=== PATIENT | male | born 1960 | race Caucasian/White ===

== ENCOUNTER 2017-07-19 14:42 | Emergency (ER) | payer OTHER ==
[2017-07-19 16:12] LABS: A TYPE INFLUENZA AG NEGATIVE (NEGATIVE); B INFLUENZA AG NEGATIVE (NEGATIVE)
--- NOTE | 2017-07-19 16:16 | ER Document Report ---
ED Respiratory Problem - General Chief Complaint: Cough Stated Complaint: COUGH Time Seen by Provider: 07/19/17 15:38 Mode of Arrival: Ambulatory Information source: Patient Notes: 57-year-old male presents to ED for cough congestion and flulike symptoms for the last 5 days. States he went to the [place] [facility] today and they sent him to the emergency room to get flu test and chest x-ray. He states he has had a productive cough body aches fatigue no chest pain speaks with full sentences walks with the even steady gait no acute distress noted. TRAVEL OUTSIDE OF THE [place] IN LAST 30 DAYS: No - HPI Patient complains to provider of: Cough, Short of breath Onset: Other - 5 days Duration: Continuous Initiating Event: URI Quality of pain: Achy - Body aches Severity: Moderate Pain Level: 3 Context: Other - Cough congestion body aches Short of Breath: Mild Cough: Productive - Plan Sputum color: White Sputum consistency: Thick Associated symptoms: Cough, PND, Runny nose, Sinus pain/pressure, Short of breath, Other - Body aches Similar symptoms previously: Yes Recently seen / treated by doctor: Yes - Related Data Allergies/Adverse Reactions: No Known Allergies Allergy (Unverified 07/19/17 14:45) Past Medical History - General Information source: Patient - Social History Smoking Status: Never Smoker Cigarette use (# per day): No Chew tobacco use (# tins/day): No Smoking Education Provided: No Frequency of alcohol use: None Drug Abuse: None Occupation: [employer] Lives with: Spouse/Significant other Family History: CAD, COPD, CVA, Hyperlipidemia, Hypertension, Malignancy. denies: Arthritis, Thyroid Disfunction Patient has suicidal ideation: No Patient has homicidal ideation: No - Past Medical History Cardiac Medical History: Reports: None Pulmonary Medical History: Reports: None EENT Medical History: Reports: Ears Neurological Medical History: Reports: None Endocrine Medical History: Reports: None Renal/ Medical History: Reports: None Malignancy Medical History: Reports None GI Medical History: Reports: Hx Colonoscopy Musculoskeltal Medical History: Reports Hx Arthritis, Reports Hx Musculoskeletal Trauma Skin Medical History: Reports None Psychiatric Medical History: Reports: Hx Post Traumatic Stress Disorder Traumatic Medical History: Reports: None Infectious Medical History: Reports: None Past Surgical History: Reports: Hx Orthopedic Surgery - Achilles tendon repair, Hx Vascular Surgery - Varicose vein - Immunizations Immunizations up to date: Yes Review of Systems - Review of Systems Constitutional: Recent illness EENT: Nose congestion, Nose discharge, Sinus pressure, Sinus discharge, Throat pain Cardiovascular: No symptoms reported Respiratory: Cough, Sputum Gastrointestinal: No symptoms reported Genitourinary: No symptoms reported Male Genitourinary: No symptoms reported Musculoskeletal: No symptoms reported Skin: No symptoms reported Hematologic/Lymphatic: No symptoms reported Neurological/Psychological: No symptoms reported -: Yes All other systems reviewed and negative Physical Exam - Vital signs Vitals: Temp Pulse Resp BP Pulse Ox 97.5 F 62 16 120/77 96 07/19/17 14:52 07/19/17 14:52 07/19/17 14:52 07/19/17 14:52 07/19/17 14:52 Interpretation: Normal - General General appearance: Appears well, Alert - HEENT Head: Normocephalic, Atraumatic Eyes: Normal Pupils: PERRL Ears: Normal External canal: Normal Tympanic membrane: Normal Sinus: Normal Nasal: Purulent discharge, Swelling Mouth/Lips: Normal Mucous membranes: Normal Pharynx: Post nasal drainage. No: Erythema, Exudate, Tonsillar hypertrophy Neck: Normal - Respiratory Respiratory status: No respiratory distress Chest status: Nontender Breath sounds: Productive cough. No: Decreased air movement, Nonproductive cough, Rales, Rhonchi, Stridor, Wheezing Chest palpation: Normal - Cardiovascular Rhythm: Regular Heart sounds: Normal auscultation Murmur: No - Abdominal Inspection: Normal Distension: No distension Bowel sounds: Normal Tenderness: Nontender Organomegaly: No organomegaly - Back Back: Normal, Nontender - Extremities General upper extremity: Normal inspection, Nontender, Normal color, Normal ROM , Normal temperature General lower extremity: Normal inspection, Nontender, Normal color, Normal ROM , Normal temperature, Normal weight bearing. No: Aiden's sign - Neurological Neuro grossly intact: Yes Cognition: Normal Orientation: AAOx4 [place]undo Coma Scale Eye Opening: Spontaneous [place]undo Coma Scale Verbal: Oriented [place] Coma Scale Motor: Obeys Commands Raymundo Coma Scale Total: 15 Speech: Normal Motor strength normal: LUE, RUE, LLE, RLE Sensory: Normal - Psychological Associated symptoms: Normal affect, Normal mood - Skin Skin Temperature: Warm Skin Moisture: Dry Skin Color: Normal Course - Re-evaluation Re-evalutation: 07/19/17 17:10 Discussed results of flu test and chest x-ray with patient and written reports given to patient to take back to the [place] [facility]. Patient informed he has atelectasis which was discussed to him so he would understand what it was I also gave him written instructions concerning atelectasis. He was also given a prescription for azithromycin if he is not feeling better in the next 2-3 days to start or if he develops a fever again. There is no definite pneumonia at this time. Patient to follow-up with his primary doctor via telephone today or tomorrow to schedule a follow-up visit. - Vital Signs Vital signs: Temp Pulse Resp BP Pulse Ox 98.3 F 62 18 113/74 96 07/19/17 17:31 07/19/17 17:31 07/19/17 17:31 07/19/17 17:31 07/19/17 17:31 - Diagnostic Test Radiology reviewed: Image reviewed, Reports reviewed Discharge - Discharge Clinical Impression: Atelectasis of right middle ear URI (upper respiratory infection) Qualifiers: URI type: unspecified URI Qualified Code(s): J06.9 - Acute upper respiratory infection, unspecified Condition: Stable Disposition: HOME, SELF-CARE Additional Instructions: UPPER RESPIRATORY ILLNESS: You have a viral infection of the respiratory passages -- a "cold." This common infection causes nasal congestion, drainage, and often sore throat and cough. It is highly contagious. The disease usually lasts about 10 to 14 days. There is no "cure" for the viral infection -- it must run its course. If there is a complication, such as bacterial infection in the nose, sinuses, middle ear, or bronchial tubes, antibiotics may be required. The antibiotics won't affect the virus. Drink plenty of fluids. A humidifier may help. An expectorant medication or decongestant may make you more comfortable. Use acetaminophen or ibuprofen for fever or aches. See the doctor if fever persists over two days, if there is any significant worsening of your symptoms, or if you simply fail to improve as expected. Atelectasis Your symptoms are due to partial collapse of the lung, called atelectasis. When lung air sacs aren't filled properly with air, they can collapse. This is common after surgery. It may occur whenever breathing is weak or painful. To correct the collapse, we need to get your lung air sacs to open. Do breathing exercises for the next two days. Every 15 minutes while awake, rapidly suck in a full breath and hold it a few seconds. Sometimes we'll prescribe a machine to measure your progress. Call or return if there's increasing shortness of breath, fever or chills, increasing chest pain, productive cough, or coughing of blood. You will be given a prescription of azithromycin if you develop a fever the respirations and breathing become worse or you increase the amount of sputum your cough and up. Then start your azithromycin. Please call your primary doctor today to schedule a follow-up visit. Your flu test were negative. Azithromycin Azithromycin (Zithromax) is a broad spectrum antibiotic in the same class as erythromycin. It can treat a variety of bacterial infections, but is most frequently used for respiratory infections. Azithromycin is extremely long-lasting. It accumulates in body tissues and continues to kill bacteria for many days. In order to improve absorption, Azithromycin should be taken at least one hour before or two hours after a meal. It does not have the same strong tendency to upset the stomach as erythromycin and is usually very well tolerated. Patients who have had a rash or other true allergic reactions to erythromycin should not take this medication. Call if you develop gastrointestinal distress, severe diarrhea, rash, hives, itching, or shortness of breath. DECONGESTANT MEDICATION: A decongestant medicine has been prescribed. Often this medicine is combined in the same tablet with an antihistamine or expectorant. This type of medicine is helpful in treating a bad cold or sinus condition, as well as in treatment of the nasal congestion of hay fever. It is not of much benefit for lung infections. Decongestant medicines are related to stimulants. They can cause an increase in blood pressure and heart rate. Persons with heart disease and high blood pressure should not take decongestants without discussing this with the physician. If you develop palpitations, chest pain, headache, or tremors, stop the medicine and consult your physician. COUGH-SUPPRESSANT & EXPECTORANT MEDICATION: You are to use a cough medication as needed for relief of symptoms. This medicine is a combination of an expectorant (to make the mucous thinner and more easily "coughed up") and a cough suppressant (to reduce the frequency of coughing). The cough-suppressant medicine is related to narcotics. You may experience mild nausea and sleepiness. Some patients who are very sensitive to narcotics may have stomach pain from this medicine. Taking the medicine with food reduces these side effects. Do not drive or work with machinery until you know how this medicine affects you. The expectorant should have no side effects. Iodine-containing expectorants (such as organidin) should not be taken by persons with active thyroid disease unless approved by your doctor. Call the doctor if you develop shortness of breath, hives, rash, itching, lightheadedness, or severe nausea and vomiting. USE OF ACETAMINOPHEN (Tylenol): Acetaminophen may be taken for pain relief or fever control. It's much safer than aspirin, offering a wider range of "safe" dosages. It is safe during . Some brand names are Tylenol, Panadol, Datril, Anacin 3, Tempra, and Liquiprin. Acetaminophen can be repeated every four hours. The following are maximum recommended dosages: >89 pounds or adults 650 mg to 900 mg Acetaminophen can be repeated every four hours. Maximum dose not to exceed 4000 mg a day. SMOKING: If you smoke, you should stop smoking. The tar and chemicals in cigarette smoke are harmful. Smoking has been shown to cause: emphysema chronic bronchitis lung cancer mouth and throat cancer stomach and pancreas cancer premature aging defects In addition, smoking increases ear and lung infections in children of smokers. FOLLOW-UP CARE: If you have been referred to a physician for follow-up care, call the physician s office for an appointment as you were instructed or within the next two days. If you experience worsening or a significant change in your symptoms, notify the physician immediately or return to the Emergency Department at any time for re-evaluation. Prescriptions: Azithromycin [Zithromax 250 mg Tablet] 250 mg PO ASDIR PRN #6 tablet PRN Reason: Forms: Return to Work Referrals: TIEN COLEMAN MD [Primary Care Provider] - Follow up as needed
--- NOTE | 2017-07-19 16:28 | RADIOLOGY REPORT (SQ) ---
EXAM DESCRIPTION: CHEST PA/LAT COMPLETED DATE/TIME: 07/19/2017 4:16 pm REASON FOR STUDY: cough congestion COMPARISON: None. EXAM PARAMETERS: NUMBER OF VIEWS: two views TECHNIQUE: Digital Frontal and Lateral radiographic views of the chest acquired. RADIATION DOSE: NA LIMITATIONS: none FINDINGS: LUNGS AND PLEURA: Probable calcified granuloma right upper lobe superimposed on the anteri or right 2nd rib. Minimal right middle lobe bandlike airspace disease likely atelectasis. No fluffy alveolar infiltrates worrisome for edema or pneumonia. No pleural effusion. No pneumothor ax. MEDIASTINUM AND HILAR STRUCTURES: No masses or contour abnormalities. HEART AND VASCULAR STRUCTURES: Heart normal size. No evidence for failure. BONES: No acute findings. HARDWARE: None in the chest. OTHER: No other significant finding. IMPRESSION: Minimal right middle lobe bandlike atelectasis or scarring TECHNICAL DOCUMENTATION: JOB ID: [id number] [employer]- All Rights Reserved
[2017-07-19 17:34] VITALS: BP 113/74
== END 2017-07-19 17:32 | disposition home or self-care (01) ==
LOC: ER 14:42
DX: J98.11 Atelectasis (principal); J06.9 Acute upper respiratory infection, unspecified; M79.1 Myalgia
CPT/HCPCS: 71046; 87804; 99283

== ENCOUNTER 2018-09-13 16:32 | Emergency (ER) | payer OTHER ==
--- NOTE | 2018-09-13 19:42 | ER Document Report ---
ED Medical Screen (RME) - General Chief Complaint: Abdominal Pain Stated Complaint: STOMACH PAIN Time Seen by Provider: 09/13/18 19:39 Primary Care Provider: TIEN COLEMAN MD [Primary Care Provider] - Follow up as needed Mode of Arrival: Ambulatory Information source: Patient - pt with R-sided abdominal pain intermittently for the past couple of weeks. Worse today TRAVEL OUTSIDE OF THE [place] IN LAST 30 DAYS: No - Related Data Allergies/Adverse Reactions: No Known Allergies Allergy (Unverified 07/19/17 14:45) Past Medical History Renal/ Medical History: Denies: Hx Peritoneal Dialysis GI Medical History: Reports: Hx Colonoscopy Musculoskeltal Medical History: Reports Hx Arthritis, Reports Hx Musculoskeletal Trauma Psychiatric Medical History: Reports: Hx Post Traumatic Stress Disorder Past Surgical History: Reports: Hx Orthopedic Surgery - Achilles tendon repair, Hx Vascular Surgery - Varicose vein - Immunizations Immunizations up to date: Yes Physical Exam - Vital signs Vitals: Temp Pulse Resp BP Pulse Ox 97.9 F 70 16 135/83 H 94 09/13/18 16:47 09/13/18 16:47 09/13/18 16:47 09/13/18 16:47 09/13/18 16:47 Course - Vital Signs Vital signs: Temp Pulse Resp BP Pulse Ox 97.9 F 70 16 135/83 H 94 09/13/18 16:47 09/13/18 16:47 09/13/18 16:47 09/13/18 16:47 09/13/18 16:47 Doctor's Discharge - Discharge Referrals: TIEN COLEMAN MD [Primary Care Provider] - Follow up as needed
[2018-09-13 20:44] LABS: ABSOLUTE BASOPHILS # (AUTO) 0.1 10^3/uL (0.0-0.2); ABSOLUTE EOSINOPHILS # (AUTO) 0.3 10^3/uL (0.0-0.6); ABSOLUTE LYMPHOCYTES (AUTO) 3.3 10^3/uL (0.5-4.7); ABSOLUTE NEUT (AUTO) 5.3 10^3/uL (1.7-8.2); BASOPHILS % (AUTO) 0.9 % (0-2); EOSINOPHILS % (AUTO) 2.7 % (0-6); HEMATOCRIT 52.4 % (37.9-51.0); HEMOGLOBIN 18.7 g/dL (13.5-17.0); LYMPHOCYTES % (AUTO) 32.9 % (13-45); MEAN CORPUSCULAR HEMOGLOBIN 33.1 pg (27.0-33.4); MEAN CORPUSCULAR HGB CONC 35.7 g/dL (32.0-36.0); MEAN CORPUSCULAR VOLUME 93 fl (80-97); MONOCYTES % (AUTO) 9.9 % (3-13); PLATELET COUNT 169 10^3/uL (150-450); RED BLOOD COUNT 5.65 10^6/uL (4.35-5.55); RED CELL DISTRIBUTION WIDTH 12.9 % (11.5-14.0); SEGMENTED NEUTROPHILS % (AUTO) 53.6 % (42-78); TOTAL CELLS COUNTED % (AUTO) 100 %
[2018-09-13 21:02] LABS: ALANINE AMINOTRANSFERASE 133 U/L (21-72); ALBUMIN 4.6 g/dL (3.5-5.0); ALKALINE PHOSPHATASE 65 U/L (38-126); ANION GAP 10 (5-19); ASPARTATE AMINO TRANSFERASE 108 U/L (17-59); BILIRUBIN,DIRECT 0.4 mg/dL (0.0-0.4); BILIRUBIN,TOTAL 1.2 mg/dL (0.2-1.3); BLOOD UREA NITROGEN 17 mg/dL (7-20); CALCIUM 10.4 mg/dL (8.4-10.2); CARBON DIOXIDE 24 mmol/L (22-30); CHLORIDE 104 mmol/L (98-107); GLUCOSE 92 mg/dL (75-110); LIPASE 76.5 U/L (23-300); POTASSIUM 4.4 mmol/L (3.6-5.0); TOTAL PROTEIN 8.2 g/dL (6.3-8.2)
--- NOTE | 2018-09-13 21:53 | RADIOLOGY REPORT (SQ) ---
CT ABDOMEN PELVIS WITH IV CONTRAST HISTORY: Right-sided abdominal pain COMPARISON: None. TECHNIQUE: CT scan of the abdomen and pelvis was performed with IV contrast. This exam was performed according to our departmental dose-optimization program, which includes automated exposure control, adjustment of the mA and/or kV according to patient size and/or use of iterative reconstruction technique. FINDINGS: The lung bases are clear. No pleural or pericardial effusions. There is no hiatal hernia. Hepatic steatosis. The gallbladder, spleen, pancreas, adrenal glands, and kidneys are normal without hydronephrosis. There is a simple 2.9 cm cyst in the right kidney. The pelvic organs are normal. The appendix is not well visualized; however there are no inflammatory changes in the right lower quadrant. No small bowel obstruction. No evidence of acute diverticulitis. No intraperitoneal free fluid or free air is seen. The aorta is normal caliber. No acute osseous findings are appreciated. There is a small fat-containing umbilical hernia with minimal inflammatory stranding. IMPRESSION: 1. Small fat-containing umbilical hernia with minimal stranding. 2. Hepatic steatosis.
--- NOTE | 2018-09-13 22:23 | ER Document Report ---
ED General - General Chief Complaint: Abdominal Pain Stated Complaint: STOMACH PAIN Time Seen by Provider: 09/13/18 19:39 Primary Care Provider: KYLEE ALVARADO MD [ACTIVE STAFF] - 09/16/18 Mode of Arrival: Ambulatory Notes: Patient 58-year-old male who presents with complaint of lower abdominal pain is been intermittent for a month. He says today it was worse and would not go away and therefore he came to the ER. No fevers. No vomiting. No blood in his stool. He says sometimes he does get a swollen area over his umbilicus that becomes painful. He said that happened today and therefore he came to the ER. He has not seen a surgeon about this. No other complaints at this time. TRAVEL OUTSIDE OF THE [place] IN LAST 30 DAYS: No - Related Data Allergies/Adverse Reactions: No Known Allergies Allergy (Unverified 07/19/17 14:45) Past Medical History - General Information source: Patient - pt with R-sided abdominal pain intermittently for the past couple of weeks. Worse today - Social History Smoking Status: Never Smoker Chew tobacco use (# tins/day): No Frequency of alcohol use: None Drug Abuse: None Family History: CAD, COPD, CVA, Hyperlipidemia, Hypertension, Malignancy. denies: Arthritis, Thyroid Disfunction Patient has suicidal ideation: No Patient has homicidal ideation: No Renal/ Medical History: Denies: Hx Peritoneal Dialysis GI Medical History: Reports: Hx Colonoscopy Musculoskeletal Medical History: Reports Hx Arthritis, Reports Hx Musculoskeletal Trauma Psychiatric Medical History: Reports: Hx Post Traumatic Stress Disorder Past Surgical History: Reports: Hx Orthopedic Surgery - Achilles tendon repair, Hx Vascular Surgery - Varicose vein - Immunizations Immunizations up to date: Yes Review of Systems - Review of Systems Notes: My Normal Review Basic REVIEW OF SYSTEMS: CONSTITUTIONAL : Denies fever, chills, or sweats. Denies recent illness. RESPIRATORY: Denies cough, cold, or chest congestion. Denies shortness of breath, difficulty breathing, or wheezing. GASTROINTESTINAL: Lower abdominal pain that is intermittent. GENITOURINARY: Denies difficulty urinating, painful urination, burning, frequency, or blood in urine. MUSCULOSKELETAL: Denies neck or back pain or joint pain or swelling. SKIN: Denies rash or skin lesions. NEUROLOGICAL: Denies altered mental status or loss of consciousness. Denies headache. Denies weakness or paralysis or loss of use of either side. Denies problems with gait or speech. Denies sensory or motor loss. ALL OTHER SYSTEMS REVIEWED AND NEGATIVE. Physical Exam - Vital signs Vitals: Temp Pulse Resp BP Pulse Ox 97.9 F 70 16 135/83 H 94 09/13/18 16:47 09/13/18 16:47 09/13/18 16:47 09/13/18 16:47 09/13/18 16:47 - Notes Notes: General Appearance: Well nourished, alert, cooperative, no acute distress, no obvious discomfort. Well-appearing. Vitals: reviewed, See vital signs table. Eyes: PERRL, EOMI, Conjuctiva clear Mouth: No decreasd moisture Abdomen: Normal BS, soft, No rigidity, patient has a soft umbilical hernia which is very easily reducible. Is not firm. Not very tender to palpation. Remainder of abdomen is nontender. Extremities:good pulses in all extremities, no edema. Skin: warm, dry, appropriate color, no rash Neuro: speech clear, oriented x 3, normal affect, responds appropriately to q uestions. Course - Re-evaluation Re-evalutation: 09/13/18 23:00 Patient has a umbilical hernia on exam. Very soft and easily reducible. Patient says sometimes he feels it does become firm but always eventually goes away. I informed the patient that if the hernia ever becomes firm and hard that he should lay flat and see if it will reduce with gentle pressure. If it does not reduce with gentle pressure than he must return to the ER as this is a sign of incarceration. Currently has no signs of incarceration as the hernia is soft and very easily reducible with just gently pushing over the hernia. He is not acidotic on his labs. He does not have a leukocytosis. CT scan just shows mild stranding of what they thought was a fat-containing hernia. Patient workup shows that he is a good candidate for outpatient surgery at this time. No indication for emergent surgery at this time. I explained to this patient is understanding of it. Encouraged him return to ER immediately if he has hernia becomes firm hard or painful and if he has a hernia that is unable to be easily reduced with the above-mentioned technique. Patient to call the surgery clinic Sunday morning to make a close follow-up appointment. Patient agrees with plan and will be discharged home. Dictation of this chart was performed using voice recognition software; therefore, there may be some unintended grammatical errors. 09/13/18 23:02 - Vital Signs Vital signs: Temp Pulse Resp BP Pulse Ox 97.9 F 70 16 135/83 H 94 09/13/18 16:47 09/13/18 16:47 09/13/18 19:38 09/13/18 16:47 09/13/18 16:47 - Laboratory Result Diagrams: 09/13/18 20:25 09/13/18 20:25 Laboratory results interpreted by me: 09/13/18 09/13/18 09/13/18 20:13 20:25 20:25 RBC 5.65 H Hgb 18.7 H Hct 52.4 H Calcium 10.4 H AST 108 H ALT 133 H Urine Blood SMALL H Discharge - Discharge Clinical Impression: Hernia Abdominal pain Qualifiers: Abdominal location: lower abdomen, unspecified Qualified Code(s): R10.30 - Lower abdominal pain, unspecified Condition: Good Disposition: HOME, SELF-CARE Additional Instructions: You have an umbilical hernia. This is the area of swelling that occurs over your bellybutton. Currently this area is soft and easy to push down. Sometimes an umbilical hernia can become "incarcerated". This is when the bowel gets stuck inside the hernia becomes very firm and hard and even with laying flat you cannot push it down. If this occurs you must return to the ER as this is a surgical emergency if it cannot be reduced by gentle pushing. Do not push too hard or you could injure yourself. Please return to the ER immediately if you have vomiting, fevers, or any bloody stools. It is important to follow-up with surgery clinic. The number to the surgery clinic will be under "Dr. Alvarado" on your discharge paperwork. Please call that number Sunday morning to make a close follow-up appointment. They will see you in the surgery clinic and eval uate you to arrange for potential surgery. Please avoid heavy lifting. Referrals: KYLEE ALVARADO MD [ACTIVE STAFF] - 09/16/18
[2018-09-13 22:24] LABS: APPEARANCE,URINE CLEAR; BILIRUBIN,URINE NEGATIVE (NEGATIVE); COLOR,URINE YELLOW; GLUCOSE, URINE NEGATIVE (NEGATIVE); KETONES,URINE NEGATIVE (NEGATIVE); LEUKOCYTE ESTERASE,URINE NEGATIVE (NEGATIVE); NITRITE,URINE NEGATIVE (NEGATIVE); PROTEIN,URINE NEGATIVE (NEGATIVE); URINE SPECIFIC GRAVITY 1.014; UROBILINOGEN,URINE NEGATIVE mg/dL (<2.0)
[2018-09-13 23:05] VITALS: BP 120/78
== END 2018-09-13 23:02 | disposition home or self-care (01) ==
LOC: ER 16:32
DX: K42.9 Umbilical hernia without obstruction or gangrene (principal); R10.30 Lower abdominal pain, unspecified
CPT/HCPCS: 36415; 74177; 80053; 81001; 83690; 85025; 99284